=== PATIENT | female | born 1995 | race Caucasian/White ===

== ENCOUNTER 2020-04-26 06:01 | Day surgery (SDC) | payer OTHER ==
[~2020-04-26] VITALS: Ht 157.5 cm; Wt 49.6 kg
[~2020-04-26 06:01] MED LIST: Augmentin 875-1 EACH PO; BC PO; Bactrim Ds Tab1 EACH PO; CALCA500CH PO; CEPH500 PO; HYDACE5 PO; IBUP800 PO; Keflex500 MG PO; LEVSOD125 PO; LORTAB 5-325 M1 EACH PO; METHI10 PO; OXYACE5T PO; PROM25 PO; RXOXYACE PO; Roxicodone5 MG PO; SULTRIDS PO; Zofran Odt4 MG SL
--- NOTE | 2020-04-26 06:56 | NUR ---
Ambulatory in Day Surgery. History, Chart, Medications and Allergies reviewed before start of procedure.Patient confirms NPO status and agrees with scheduled surgery. Patient reports completing Chlorhexadine shower X2 prior to admission to hospital.Lungs clear T/O to Auscultation. Patient States Post-Procedure ride home has been arranged WITH MOTHER.
[2020-04-26] MEDS ORDERED: DEPO-PROVE150 MG/1 M IM (07:11)
--- NOTE | 2020-04-26 07:58 | NUR ---
04/26/20 0758 Boone Orr NO ANTIBIOTICS INDICATED
--- NOTE | 2020-04-26 09:57 | NUR ---
DISCHARGE SUMMARY PT A&OX4, VSS, AFUA PO H20 AND CRACKERS, DENIES PAIN AND DENIES N&V. WALKED WITH PT TO WAITING AREA TO WAIT FOR MAURICIO DEL REAL. PT REFUSED WC, REP FEELING WELL AND READY TO GO HOME. LEFT WITH ALL PERSONAL POSSESSIONS INCLUDING DC PACKET INCLUDING 1 NARC SCRIPT. DC INSTRUCTIONS PROVIDED, BLAZE BOTTLE AND 4X4 GAUZE; PT REP UNDERSTANDING THESE INSTRUCTIONS, AND REP HAVING A FU APPT SCHEDULED WITH SURGEON. IV DC'D.
== END 2020-04-26 22:54 | disposition home or self-care (01) ==
LOC: ORSCMMR 06:01 → ORD 07:30 → ORSCMMR 07:30
PROVIDERS: Surgery
PROC: 0J9B3ZZ Drainage of Perineum Subcutaneous Tissue and Fascia, Percutaneous Approach (ICD-10-PCS; principal; 2020-04-26 07:30)
DX: K61.0 Anal abscess (principal); I10 Essential (primary) hypertension; E03.9 Hypothyroidism, unspecified; F17.210 Nicotine dependence, cigarettes, uncomplicated; Z79.899 Other long term (current) drug therapy
CPT/HCPCS: 84703; J1100; J1885; J2250; J2405; J2704; J2710; J3010; J7120

== ENCOUNTER 2020-07-22 12:22 | Day surgery (SDC) | payer OTHER ==
[~2020-07-22] VITALS: Ht 157.5 cm; Wt 49.9 kg
[~2020-07-22 12:22] MED LIST changes: +DEPO-PROVE150 MG/1 M IM; +LEVOTHYROXINE88 MC1 PO
== END 2020-07-22 15:05 | disposition home or self-care (01) ==
LOC: ORSCSDS 12:22
PROVIDERS: Surgery
PROC: 0DBL8ZX Excision of Transverse Colon, Via Natural or Artificial Opening Endoscopic, Diagnostic (ICD-10-PCS; principal; 2020-07-22 14:00)
PROC: 0DB78ZX Excision of Stomach, Pylorus, Via Natural or Artificial Opening Endoscopic, Diagnostic (ICD-10-PCS; principal; 2020-07-22 14:00)
PROC: 0DB98ZX Excision of Duodenum, Via Natural or Artificial Opening Endoscopic, Diagnostic (ICD-10-PCS; principal; 2020-07-22 14:00)
DX: R11.2 Nausea with vomiting, unspecified (principal); K62.89 Other specified diseases of anus and rectum; K60.3 Anal fistula; R10.13 Epigastric pain; D12.3 Benign neoplasm of transverse colon; K21.9 Gastro-esophageal reflux disease without esophagitis; F17.210 Nicotine dependence, cigarettes, uncomplicated; E03.9 Hypothyroidism, unspecified; Z79.899 Other long term (current) drug therapy
CPT/HCPCS: 88305; 88342; J2250; J2704; J7120

== ENCOUNTER 2021-01-09 06:36 | Emergency (ER) | payer OTHER ==
[~2021-01-09] VITALS: Ht 157.5 cm; Wt 49.9 kg
[2021-01-09 07:09] LABS: BASOPHILS ABSOLUTE AUTO 0.04 K/mm3 (0.00-0.23); BASOPHILS PERCENT AUTO 1 % (0-2); EOSINOPHILS ABSOLUTE AUTO 0.05 K/mm3 (0.00-0.68); EOSINOPHILS PERCENT AUTO 1 % (0-6); Hemoglobin 14.7 g/dL (11.5-16.0); IMMATURE GRAN ABSOLUTE AUTO 0.01 K/mm3 (0.00-0.10); IMMATURE GRAN PERCENT AUTO 0 % (0-1); LYMPHOCYTES ABSOLUTE AUTO 2.13 K/mm3 (0.84-5.20); LYMPHOCYTES PERCENT AUTO 30 % (21-46); MONOCYTES ABSOLUTE AUTO 0.55 K/mm3 (0.16-1.47); MONOCYTES PERCENT AUTO 8 % (4-13); Mean Corpuscular Volume 91 fL (80-100); Mean Platelet Volume 9.8 fL (9.1-12.4); NEUTROPHILS ABSOLUTE AUTO 4.41 K/mm3 (1.96-9.15); NEUTROPHILS PERCENT AUTO 61 % (41-73); Platelet Count 229 K/mm3 (150-400); RDW Coefficient Variation 12.2 % (11.7-14.2); RDW Standard Deviation 40.8 fL (35.1-46.3); White Blood Cell Count 7.19 K/mm3 (4.00-11.30)
[2021-01-09] MEDS ORDERED: EUTHYROX125 MCG PO (07:16)
[2021-01-09 07:37] LABS: Anion Gap 12 mmol/L (6-16); Blood Urea Nitrogen 11 mg/dL (8-24); Bun/Creatinine Ratio 14.1 (12.0-20.0); CO2, Blood 21 mmol/L (21-32); Calcium, Blood 9.3 mg/dL (8.5-10.1); Chloride, Blood 109 mmol/L (98-108); Creatinine, Blood 0.78 mg/dL (0.40-1.00); Glomerular Filtration Rate >60 (60-); Glucose, Blood 99 mg/dL (70-99); Potassium, Blood 3.5 mmol/L (3.5-5.5); Sodium, Blood 142 mmol/L (136-145)
[2021-01-09] MEDS ORDERED: LORA.5 PO (11:44)
== END 2021-01-09 11:58 | disposition home or self-care (01) ==
LOC: ER 06:36
PROVIDERS: Emergency Medicine
DX: R00.2 Palpitations (principal); F41.9 Anxiety disorder, unspecified; R94.6 Abnormal results of thyroid function studies; E89.0 Postprocedural hypothyroidism; R91.1 Solitary pulmonary nodule; F17.210 Nicotine dependence, cigarettes, uncomplicated; Z79.899 Other long term (current) drug therapy
CPT/HCPCS: 71045; 71260; 80048; 84439; 84443; 85025; 85379; 93005; 93010; 96374-59; 99284-25; J2405; Q9967

== ENCOUNTER 2021-01-15 19:29 | Emergency (ER) | payer OTHER ==
[~2021-01-15] VITALS: Ht 157.5 cm; Wt 49.9 kg
[~2021-01-15 19:29] MED LIST changes: +EUTHYROX125 MCG PO; +LORA.5 PO
[2021-01-15 20:11] LABS: Source, Urine Clean Catch
[2021-01-15 20:22] LABS: Appearance, Urine Clear (Clear); Bilirubin, Urine Neg (Neg); Blood, Urine 5+ (Neg); Color, Urine Yellow (P-Yellow); Glucose Qualitative, Urine Neg (Neg); Ketones, Urine 3+ (Neg); Leukocyte Esterase, Urine Neg (Neg); Nitrite, Urine Neg (Neg); Protein, Urine Neg (Neg); Urobilinogen, Urine NORM (Normal); pH, Urine 6.5 (5.0-8.0)
[2021-01-15 20:32] LABS: Bacteria Few /hpf; Red Blood Cells, Urine 0-2 /hpf (0-2); Squamous Epithelial Cells Few /hpf (Few); White Blood Cells, Urine 0-2 /hpf (0-5)
[2021-01-15 20:39] LABS: BASOPHILS ABSOLUTE AUTO 0.02 K/mm3 (0.00-0.23); BASOPHILS PERCENT AUTO 0 % (0-2); EOSINOPHILS ABSOLUTE AUTO 0.03 K/mm3 (0.00-0.68); EOSINOPHILS PERCENT AUTO 0 % (0-6); Hematocrit 43.3 % (33.0-51.0); Hemoglobin 15.1 g/dL (11.5-16.0); IMMATURE GRAN ABSOLUTE AUTO 0.03 K/mm3 (0.00-0.10); IMMATURE GRAN PERCENT AUTO 0 % (0-1); LYMPHOCYTES ABSOLUTE AUTO 1.85 K/mm3 (0.84-5.20); LYMPHOCYTES PERCENT AUTO 19 % (21-46); MONOCYTES PERCENT AUTO 6 % (4-13); Mean Corpuscular HGB Conc 34.9 g/dL (31.5-36.5); Mean Corpuscular Volume 92 fL (80-100); Mean Platelet Volume 10.6 fL (9.1-12.4); NEUTROPHILS ABSOLUTE AUTO 7.47 K/mm3 (1.96-9.15); NEUTROPHILS PERCENT AUTO 75 % (41-73); Platelet Count 216 K/mm3 (150-400); RDW Coefficient Variation 11.9 % (11.7-14.2); RDW Standard Deviation 40.8 fL (35.1-46.3); Red Blood Cell Count 4.72 M/mm3 (3.80-5.20)
[2021-01-15] MEDS ORDERED: BUSPIRONE HCL7.5 M1 PO (20:45)
[2021-01-15 21:04] LABS: Alanine Aminotransfer (ALT/SGP 28 U/L (12-78); Albumin, Blood 4.9 g/dL (3.4-5.0); Albumin/Globulin Ratio 1.5 (0.8-1.8); Alk Phos 47 U/L (50-136); Anion Gap 10 mmol/L (6-16); Aspartate Aminotrans (AST/SGOT 10 U/L (12-37); Bilirubin, Total 2.2 mg/dL (0.1-1.0); Blood Urea Nitrogen 13 mg/dL (8-24); Bun/Creatinine Ratio 17.8 (12.0-20.0); CO2, Blood 22 mmol/L (21-32); Calcium, Blood 9.6 mg/dL (8.5-10.1); Chloride, Blood 108 mmol/L (98-108); Creatinine, Blood 0.73 mg/dL (0.40-1.00); Globulin, Blood 3.2 g/dL (2.2-4.0); Glomerular Filtration Rate >60 (60-); Glucose, Blood 83 mg/dL (70-99); Potassium, Blood 3.6 mmol/L (3.5-5.5); Sodium, Blood 140 mmol/L (136-145); Total Protein, Blood 8.1 g/dL (6.4-8.2)
[2021-01-16] MEDS ORDERED: Zofran4 MG PO (00:32)
[2021-01-16] MEDS ORDERED: OMEP20ER PO (00:32)
== END 2021-01-16 00:45 | disposition home or self-care (01) ==
LOC: ER 19:29
PROVIDERS: Physician Assistant
DX: K29.70 Gastritis, unspecified, without bleeding (principal); F17.210 Nicotine dependence, cigarettes, uncomplicated; E89.0 Postprocedural hypothyroidism; Z79.890 Hormone replacement therapy; Z79.899 Other long term (current) drug therapy
CPT/HCPCS: 36415; 76705; 80053; 81001; 81025; 83690; 85025; 96374; 99284-25; A9270

== ENCOUNTER 2021-03-01 13:22 | Day surgery (SDC) | payer OTHER ==
[~2021-03-01] VITALS: Ht 157.5 cm; Wt 43.8 kg
[~2021-03-01 13:22] MED LIST changes: +BUSPIRONE HCL7.5 M1 PO; +OMEP20ER PO; +Zofran4 MG PO
== END 2021-03-01 15:45 | disposition home or self-care (01) ==
LOC: ORSCSDS 13:22
PROVIDERS: Surgery
PROC: 0DBE8ZX Excision of Large Intestine, Via Natural or Artificial Opening Endoscopic, Diagnostic (ICD-10-PCS; principal; 2021-03-01 14:30)
PROC: 0DB48ZX Excision of Esophagogastric Junction, Via Natural or Artificial Opening Endoscopic, Diagnostic (ICD-10-PCS; principal; 2021-03-01 14:30)
PROC: 0DB98ZX Excision of Duodenum, Via Natural or Artificial Opening Endoscopic, Diagnostic (ICD-10-PCS; principal; 2021-03-01 14:30)
PROC: 0DB68ZX Excision of Stomach, Via Natural or Artificial Opening Endoscopic, Diagnostic (ICD-10-PCS; principal; 2021-03-01 14:30)
PROC: 0DBB8ZX Excision of Ileum, Via Natural or Artificial Opening Endoscopic, Diagnostic (ICD-10-PCS; principal; 2021-03-01 14:30)
PROC: 0DB58ZX Excision of Esophagus, Via Natural or Artificial Opening Endoscopic, Diagnostic (ICD-10-PCS; principal; 2021-03-01 14:30)
DX: R10.13 Epigastric pain (principal); K21.00 Gastro-esophageal reflux disease with esophagitis, without bleeding; R19.4 Change in bowel habit; Z85.850 Personal history of malignant neoplasm of thyroid; F17.210 Nicotine dependence, cigarettes, uncomplicated; Z79.899 Other long term (current) drug therapy
CPT/HCPCS: 88305; 88342; J0330; J0461; J2250; J2405; J2704; J7120

== ENCOUNTER → 2021-10-18 | Outpatient (CLI) | payer OTHER ==
[2021-10-20 10:27] LABS: Candida species (DNA Probe) Negative (NEGATIVE); G. vaginalis (DNA Probe) Positive (NEGATIVE); T. vaginalis (DNA Probe) Negative (NEGATIVE)
== END | disposition home or self-care (01) ==
LOC: LAB SHORT 16:00
PROVIDERS: Physician Assistant
DX: N89.8 Other specified noninflammatory disorders of vagina (principal)
CPT/HCPCS: 87480; 87510; 87660

== ENCOUNTER → 2022-01-27 | Outpatient (CLI) | payer OTHER ==
[~2022-01-27] MED LIST changes: +ONDA4ODT MM
== END | disposition home or self-care (01) ==
LOC: LAB SHORT 09:29
DX: N39.0 Urinary tract infection, site not specified (principal)
CPT/HCPCS: 87086

== ENCOUNTER 2022-01-29 06:11 | Emergency (ER) | payer OTHER ==
[~2022-01-29] VITALS: Ht 167.6 cm; Wt 56.5 kg
[~2022-01-29 06:11] MED LIST changes: -ONDA4ODT MM
[2022-01-29 07:11] LABS: Source, Urine Clean Catch
[2022-01-29 07:27] LABS: Bilirubin, Urine Neg (Neg); Blood, Urine 2+ (Neg); Glucose Qualitative, Urine Neg (Neg); Ketones, Urine 1+ (Neg); Leukocyte Esterase, Urine Neg (Neg); Nitrite, Urine Neg (Neg); Protein, Urine Neg (Neg); Urobilinogen, Urine NORM (Normal)
[2022-01-29 07:39] LABS: Appearance, Urine Clear (Clear); Color, Urine Yellow (P-Yellow)
[2022-01-29 07:43] LABS: Bacteria Few /hpf; Red Blood Cells, Urine 0-2 /hpf (0-2); Squamous Epithelial Cells Many /hpf (Few)
[2022-01-29] MEDS ORDERED: ONDA4ODT MM (08:49)
[2022-01-29 16:35] LABS: Calcium, Ionized (POC) 1.16 mmol/L (1.10-1.46); Chloride (POC) 109 mmol/L (98-108); Creatinine (POC) 0.8 mg/dL (0.6-1.0); Glucose (ISTAT POC) 88 mg/dL (70-99); Potassium (POC) 3.5 mmol/L (3.5-5.5); Sodium (POC) 142 mmol/L (135-148); Total CO2 (POC) 19 mmol/L (21-32)
== END 2022-01-29 09:05 | disposition home or self-care (01) ==
LOC: ER 06:11
PROVIDERS: Emergency Medicine
DX: R10.9 Unspecified abdominal pain (principal); E89.0 Postprocedural hypothyroidism; F17.210 Nicotine dependence, cigarettes, uncomplicated; Z79.899 Other long term (current) drug therapy
CPT/HCPCS: 74176; 80047; 81001; 85014; A9270

== ENCOUNTER → 2022-02-23 | Outpatient (CLI) | payer OTHER ==
[~2022-02-23] MED LIST changes: +ONDA4ODT MM
== END | disposition home or self-care (01) ==
LOC: LAB 12:00 → LAB SHORT 12:00
DX: R35.0 Frequency of micturition (principal)
CPT/HCPCS: 87086

== ENCOUNTER → 2022-03-29 | Outpatient (CLI) | payer OTHER ==
[2022-03-30 10:05] LABS: Candida species (DNA Probe) Negative (NEGATIVE); G. vaginalis (DNA Probe) Positive (NEGATIVE); T. vaginalis (DNA Probe) Negative (NEGATIVE)
== END ==
LOC: LAB 09:15 → LAB SHORT 09:15
PROVIDERS: Physician Assistant
DX: R30.0 Dysuria (principal)
CPT/HCPCS: 87086; 87480; 87510; 87660

== ENCOUNTER 2025-01-22 09:00 | Emergency (ER) | payer OTHER ==
[~2025-01-22] VITALS: Ht 157.5 cm; Wt 46.3 kg
[2025-01-22 09:27] VITALS: BP 125/93
[2025-01-22] MEDS ORDERED: Ketorolac Tromethamine 30mg Vial IM ONE (11:10)
[2025-01-22] MEDS ORDERED: AMOCLA875 PO (11:12)
[2025-01-22] MEDS ORDERED: IBU800 M1 PO (11:12)
[2025-01-22] MEDS ORDERED: Percocet 5-3251 EACH PO (11:12)
[2025-01-22] MEDS ORDERED: ONDA4ODT MM (11:12)
== END 2025-01-22 11:25 | disposition home or self-care (01) ==
LOC: ER 09:00
DX: K04.7 Periapical abscess without sinus (principal); K02.9 Dental caries, unspecified; Z94.9 Transplanted organ and tissue status, unspecified; Z79.899 Other long term (current) drug therapy; F17.210 Nicotine dependence, cigarettes, uncomplicated
CPT/HCPCS: 96372; 99282-25; J1885

== ENCOUNTER 2025-01-24 05:02 | Emergency (ER) | payer OTHER ==
[~2025-01-24] VITALS: Ht 157.5 cm; Wt 46.3 kg
[~2025-01-24 05:02] MED LIST changes: +AMOCLA875 PO; +IBU800 M1 PO; +Percocet 5-3251 EACH PO
[2025-01-24] MEDS ORDERED: HYDROcodone 5-APAP 325 TAB PO ONE (07:05)
[2025-01-24] MEDS ORDERED: Dexamethasone Sod Phos 10 MG/ML 1ML VIAL PO ONE (07:15)
[2025-01-24] MEDS ORDERED: PRED20 PO (07:25)
[2025-01-24] MEDS ORDERED: Percocet 5-3251 EACH PO (07:25)
[2025-01-24 08:30] VITALS: BP 95/69
== END 2025-01-24 08:37 | disposition home or self-care (01) ==
LOC: ER 05:02
DX: K08.89 Other specified disorders of teeth and supporting structures (principal); F17.210 Nicotine dependence, cigarettes, uncomplicated; E03.9 Hypothyroidism, unspecified; Z79.899 Other long term (current) drug therapy
CPT/HCPCS: 99282; A9270; J1100

== ENCOUNTER 2025-03-09 11:51 | Emergency (ER) | payer OTHER ==
[~2025-03-09] VITALS: Ht 157.5 cm; Wt 48.1 kg
[~2025-03-09 11:51] MED LIST changes: +PRED20 PO
[2025-03-09 12:29] VITALS: BP 140/94
[2025-03-09] MEDS ORDERED: Prednisone20 MG PO (12:33)
== END 2025-03-09 12:34 | disposition home or self-care (01) ==
LOC: ER 11:51
DX: K08.89 Other specified disorders of teeth and supporting structures (principal); Z79.899 Other long term (current) drug therapy; Z79.2 Long term (current) use of antibiotics
CPT/HCPCS: 99282